=== PATIENT | female | born 1975 | race Caucasian/White ===

== ENCOUNTER 2024-02-16 17:52 | Day surgery (SDC) | payer BC, SELFPAY ==
[2024-02-16 12:17] VITALS: BP 104/76
[2024-02-16 12:43] LABS: % Basophils 0.5 % (0-2); % Eosinophils 1.1 % (0-6); % Immature Granulocytes 0.3 % (0-0.5); % Lymphocytes 20.3 % (20.5-51.1); % Monocytes 6.7 % (1.7-9.3); % Neutrophils 71.1 % (42.2-75.2); Absolute Basophils 0.1 10^3/uL (0-0.2); Absolute Eosinophils 0.1 10^3/uL (0-0.7); Absolute Lymphocytes 2.1 10^3/uL (1.2-3.4); Absolute Monocytes 0.7 10^3/uL (0.1-0.6); Absolute Neutrophils 7.2 10^3/uL (1.4-6.5); Hematocrit 39.6 % (37.0-47.0); Hemoglobin 13.6 g/dL (12.0-16.0); Mean Corp Hgb Conc. 34.3 g/dL (33.0-37.0); Mean Corpuscular Hgb 29.9 pg (27.0-31.0); Mean Platelet Volume 9.1 fL (7.4-10.4); Nucleated Red Blood Cells % 0 %; Platelet Count 254 10^3/uL (130-400); Red Blood Cell Count 4.55 10^6/uL (4.20-5.40); Red Cell Dist. Width 12.8 % (11.5-14.5); White Blood Cell Count 10.1 10^3/uL (4.8-10.8)
[2024-02-16 12:56] LABS: ALT (SGPT) 18 U/L (0-35); AST (SGOT) 23 U/L (14-36); Albumin 4.5 g/dl (3.5-5.0); Alkaline Phosphatase 54 U/L (38-126); Blood Urea Nitrogen 16 mg/dl (7-17); Calcium 9.5 mg/dl (8.4-10.2); Carbon Dioxide 27 mmol/L (22-30); Chloride 105 mmol/L (98-107); Glucose 89 mg/dl (70-99); HCG, Serum Qualitative Screen Negative; Lipase 221 U/L (23-300); Sodium 139 mmol/L (135-145); Total Bilirubin 0.8 mg/dl (0.2-1.3); Total Protein 6.8 g/dl (6.3-8.2); eGFR > 60.00
--- NOTE | 2024-02-16 13:36 | ED.GENMED ---
History of Present Illness
General
Chief Complaint: Abdominal Pain
Source: patient
Exam Limitations: none
Time Seen by Provider: 02/16/24 12:56
Nursing documentation reviewed up to this point in time: agreed with
History of Present Illness
History of Present Illness:
48 y/o F with ankylosing spondylitis
here with RUQ pain to back, n/v (too many times to count last night) that started 4 pm yesterady
pain is wors with movement and deep breathing, very tender
tried to tolerate aleve but couldn't keep it down
went to PCP and was sent here
+ chills, no fever
denies urinary symptoms, ches tpain, cough, recent travel, history of DVT/PE, hematuria, diarrhea, constipation
last bm yesteray
still has gallbladder
Past History
Past History
ED Past Medical History: Other (ankylosing spondylitis)
ED Past Surgical History: Gynecological
Social History
Tobacco: Non-smoker
Alcohol: None
Drug: None
Personal:
Living: with family
Employment: Employed
Review of Systems
Review of Systems
Allergies reviewed?: Yes
All Other Systems: Not applicable
Phy Exam
Physical Exam
Physical Exam:
GENERAL: Alert , in no apparent distress
EYE: pupils equal and reactive
NECK: Supple
ENT: o/p clr, mmm.
CARDIAC: Regular rate and rhythm .
LUNGS: Clear breath sounds bilaterally, no acute respiratory distress, no wheezes/rales/rhonchi
Able to take deep breaths, no rib tenderness, no rash
ABDOMEN: Soft, right upper quadrant tenderness, moderate, positive Gan sign, no r/g, no cvat, normal bowel sounds
Nondistended
NEUROLOGICAL: Alert and oriented, no focal neuro deficits
SKIN: Warm and dry, skin intact.
MUSCULOSKELETAL: No edema, well perfused. neg steffany's sign
PSYCH: Normal and appropriate interaction.
Course
Orders/Labs/Results
Orders:
Orders
02/16/24 12:22
Test Result ONCE
02/16/24 12:28
Complete Blood Count/With Diff Urgent
Comprehensive Metabolic Panel Urgent
HCG, Serum Qualitative Screen Urgent
Lipase Urgent
02/16/24 13:35
0.9% Sodium Chloride 1000 ml [Nss] 1,000 ml IV BOLUS
Ketorolac [Toradol] 30 mg IV NOW STA
Ondansetron Injectable [Zofran] 4 mg IV NOW STA
US Abdomen Complete/Upper Urgent
Comment:
Reason For Exam: ruq pain to back, vomiting last night
02/16/24 15:50
Urinalysis Reflex To Culture Urgent
Date Specimen was Collected: 02/16/24
Time Specimen was Collected: 14:09
Urine Microscopic Reflex Cult Urgent
02/16/24 16:19
Ampicillin/Sulbactam 3 G [Unasyn] 3 gm 0.9% Sodium Chloride 100 ml [Nss] 100 ml IV NOW
Abnormal Lab Results
02/16/24 02/16/24
12:28 15:50
Absolute Neuts (auto) 7.2 H 10^3/uL
(1.4-6.5)
Absolute Monos (auto) 0.7 H 10^3/uL
(0.1-0.6)
Lymphocytes % 20.3 L %
(20.5-51.1)
Urine Ketones 2+ A
(Negative)
Urine Bilirubin 1+ A
(Negative)
Leukocyte Esterase Rfl Trace A
(Negative)
02/16/24 12:28
02/16/24 12:28
Vital Signs
Initial and Last Documented VS:
Initial Vital Signs
Temp Pulse Resp BP Pulse Ox
98.0 F 95 18 104/76 98
02/16/24 12:17 02/16/24 12:17 02/16/24 12:17 02/16/24 12:17 02/16/24 12:17
Last Documented Vital Signs
Temp Pulse Resp BP Pulse Ox
98.0 F 95 18 104/76 98
02/16/24 12:17 02/16/24 12:17 02/16/24 12:17 02/16/24 12:17 02/16/24 12:17
MDM/Problems Addressed
Differential Diagnosis Includes:
acute cholecysitits, choleltihiasis
MDM/Problems Addressed:
48 y/o healthy F
ruq pain, n/v since yesterday
afebrile, well appearing
tendeR RUQ, + gan's sign
normal labs
US c/w acute cholecystitis
surgery consulted
iv abx ordered
npo
*Critical Care Note
Total Time (30-74mins, 75-104mins- exclusive of procedures): Not Applicable
ED Attending Note
-
Portions of this chart may have been created with voice recognition software.� Occasional wrong word or��sound alike� substitutions may have occurred due to the inherent limitations of voice recognition software.
Discharge Plan
Departure
Prescriptions:
No Action
Wegovy 2.4 mg/0.75 mL pen injector
2.4 mg SC TU
Referrals:
Ellie Garcia, [Family Provider] -
Interventions
Interventions:
*Risk Screen - Suicide Last Done: 02/16/24 14:09
*General Assessment Last Done: 02/16/24 14:09
*Neglect/Abuse Screening Last Done: 02/16/24 14:09
VQ-Daeark-Nsldjzbqwm Assessment Last Done: 02/16/24 14:09
Discharge Date and Time
Print Language: DANISH
[2024-02-16] MEDS: NSS 1000 IV ×3 (14:02→23:45)
[2024-02-16] MEDS: ZOFRAN 4 MG IV (14:03)
[2024-02-16] MEDS: TORADOL 30 MG IV (14:03)
[2024-02-16 14:09] VITALS: BMI 27.1
[2024-02-16 16:20] LABS: Urine Albumin Trace (Neg - Trace); Urine Bilirubin 1+ (Negative); Urine Character Slightly Cloudy (Clear); Urine Color Yellow; Urine Glucose Negative (Negative); Urine Ketone 2+ (Negative); Urine Leukocyte Trace (Negative); Urine Nitrite Negative (Negative); Urine Occult Blood Negative (Negative); Urine Specific Gravity 1.025 (<1.030); Urine Urobilinogen Negative (Neg - 1+)
--- NOTE | 2024-02-16 16:22 | HPS.HSE ---
Addendum entered and electronically signed by Noel Wolfe MD 02/16/24 18:26:
I saw and examined the patient independently.
The Family Practice Nurse Practitioner's note was reviewed and I agree with the note, assessment and plan except where noted below.
Comment: This is a 48-year-old female who presents with history, imaging, blood work all consistent with early acute cholecystitis.
Due to OR backlog, will plan for laparoscopic cholecystectomy in the OR tomorrow.
N.p.o., IV fluids, IV antibiotics ordered.
Risks/Benefits/Alternatives, expected postoperative course and possible complications (bleeding, infection, injury to surrounding structures, acute/chronic pain) discussed at length. Patient wishes to proceed with surgery. All questions answered.
Consent obtained.
I spent roughly 60 minutes in total for the care of this patient today including direct patient care and counseling, reviewing labs, imaging, coordination of care, as well as documentation.
Original Note:
Family Physician
-
Family Physician: Ellie Garcia
Chief Complaint
-
RUQ pain
History of Present Illness
Ms Felix is a 48 yo female with a h/o x2, ankylosing spondylitis on wegovy for weight loss without rapid weight changes who presents through the ED with RUQ pain after eating a large Mediterranean lunch with her brother yesterday
afternoon. She notes that later that day, she began having severe RUQ pain radiating into her back with nausea, vomiting and chills. She last vomited around 2am. She went to her PCP today for evaluation and it was recommended that she present
through the ED for further work up. She notes no fevers. She denies bowel or bladder changes with last BM this am. RUQ tenderness present on exam.
Medical History
Past Medical History
Past Medical History: Reports Other (ankylosing spondylitis )
Past Surgical History: Reports (x2)
Social History
Tobacco: Non-smoker
Alcohol: None
Personal:
Living: With Family
Employment: Employed (RN at [employer])
Family History
Family History: Not pertinent
Allergies / Home Medications
Allergies reflects when Allergies were last updated in [facility].
Home Medications with original date entered in [facility]
Allergy/Medication List:
Patient Allergies
Allergy/AdvReac Type Severity Reaction Status Date / Time
No Known Allergies Allergy Unverified 02/16/24 12:19
�Medication �Instructions �Recorded �Confirmed �Type
semaglutide (weight loss) 2.4 2.4 mg SC TU 02/16/24 02/16/24 History
mg/0.75 mL subcutaneous pen
injector (Wegovy)
Review of Systems
-
History Source: Patient
A 12 point ROS was completed and negative except as noted: Yes
Physical Exam
Vital Signs
Vital Signs
Temp Pulse Resp BP Pulse Ox
98.0 F 95 18 104/76 98
02/16/24 12:17 02/16/24 12:17 02/16/24 12:17 02/16/24 12:17 02/16/24 12:17
Physical Exam
General: Well Developed and Well Nourished
HEENT: NormoCephalic and Moist mucous membranes
Respiratory: Non Labored Respirations
GI: Soft, Non Distended and Tender (RUQ)
Skin: Warm and Dry; No Jaundice
Neuro: Awake, Alert and AO x 3
Psych: Calm
Laboratory Results
-
02/16/24 12:28
02/16/24 12:28
Laboratory Results
Total Bilirubin 0.8 mg/dl (0.2-1.3) 02/16/24 12:28
AST 23 U/L (14-36) 02/16/24 12:28
ALT 18 U/L (0-35) 02/16/24 12:28
Alkaline Phosphatase 54 U/L (38-126) 02/16/24 12:28
Lipase 221 U/L (23-300) 02/16/24 12:28
Data Reviewed
-
Ultrasound: Image Personally Visualized and interpreted, Report Reviewed by me, Discussed with Physician and Discussed with Patient
Lab Data: Labs Reviewed by me, Discussed with Physician and Discussed with Patient
Impression/Plan
-
IMPRESSION:
48 yo female with a h/o x2, ankylosing spondylitis on wegovy for weight loss who presents with approx 24 hours of RUQ pain with n/v after a large meal yesterday. She is afebrile with stable vital signs. No leukocytosis with normal lft's.
RUQ tenderness on exam. Abdominal US with prominent gallbladder containing multiple stones with +ortiz's sign and wall thickening. Exam and imaging consistent with early acute calculous cholecystitis. IV Unasyn given in the ED.
PLAN:
--Keep npo for tentative lap antwan today pending OR availability
--Continue antibiotics, Zosyn 3.375mg q6h
--IVF while NPO
--Zofran 4mg q6hprn nausea
--Analgesics with Tylenol/Dilaudid
--VTE ppx with SCD's
[2024-02-16] MEDS: UNASYN IV (16:33)
[2024-02-16 16:58] LABS: Urine Mucus Many
[2024-02-16 16:59] LABS: Urine Bacteria Many (Negative); Urine Red Blood Cell 0-2 /HPF (0-2)
[2024-02-16] MEDS: DILAUDID 0.5 MG IV ×3 (17:55→23:17)
[2024-02-16 18:45] VITALS: BP 101/63
--- NOTE | 2024-02-16 19:18 | PTCARENOTE ---
Received patient from ER via stretcher at 1845. Pain controlled. Patient oriented to room. Call rivers in reach.
[2024-02-16] MEDS: ZOSYN IV (22:02)
--- NOTE | 2024-02-16 22:59 | W.SUR.PREOP ---
Pre-Operative Surgical Note
-
I have examined this patient prior to the performance of the scheduled procedure.
The patient's condition is unchanged from the time of the current History and
Physical and the patient is able to undergo the scheduled procedure.
--- NOTE | 2024-02-16 22:59 | W.IMMPOSTOP ---
Surgical Immed Post Op Note
-
Primary Surgeon: Noel Wolfe MD
Assisting Surgeon: None
Pre-op Diagnosis: Acute cholecystitis
Post-op Diagnosis: Same
Procedure Performed: Laparoscopic cholecystectomy
Anesthesia Type: General
Specimen / Cultures: Gallbladder
Estimated Blood Loss: 7 cc
Complications: None
Operative Findings: Acutely inflamed, highly edematous cholecystitis with periduodenal fat and adhesions to the infundibulum. Critical view of safety obtained prior to ligation of the cystic artery and duct. No cholangiogram performed. Duct
ligated with a 5 mm clip followed by 0 PDS Endoloop.
POST OP PLAN:
Imaging: None
Labs: Routine AM
Diet: Advance to Regular as tolerated
Analgesia: Tylenol 650mg q6 Tigist, Vilma 5mg q6 PRN, Dilaudid 0.5mg q2h PRN
Neuro/vascular checks: q4h
AC/AP: Hold Therapeutic AC, Ok for DVT PPx
Activity: Ad Shyla
Wound/Incisions/Drains: Routine
Abx: Continue antibiotics while admitted.
Dispo: RNF, anticipate discharge home tomorrow.
--- NOTE | 2024-02-16 23:02 | OR.RPT ---
Operative Report
Operative Report
Patient Name: Ellie Felix
: 1975
Date of Operation: 02/16/2024
Preoperative Diagnosis: Acute cholecystitis
Postoperative Diagnosis: Same
Procedure(s):
Laparoscopic Cholecystectomy
Surgeon(s):
Dr. Wolfe
Phys Asst(s):
None
Anesthesia: General
Estimated Blood Loss: 7 cc
Urine Output: None
Drains/Lines/Implants: None
Specimens:
1. Gallbladder and contents
HPI/Surgical Indications:
This is a 48-year-old female who presents with a 2-day history of right upper quadrant abdominal pain in the setting of sporadic episodes of biliary colic. Exam, labs and imaging are consistent with acute cholecystitis. Risks/Benefits/Alternatives
were discussed at length, and the patient agreed to proceed with surgery.
Operative Findings: Acutely inflamed, highly edematous cholecystitis with periduodenal fat and adhesions to the infundibulum. Critical view of safety obtained prior to ligation of the cystic artery and duct. No cholangiogram performed. Duct
ligated with a 5 mm clip followed by 0 PDS Endoloop.
Procedure Description:
The patient was brought to the Operating Room and placed in the supine position with one arm tucked. Following uneventful induction of general endotracheal anesthesia, an orogastric tube was placed. The abdomen was prepped and draped in the usual
sterile fashion. A timeout was performed confirming the procedure, consent, and that IV antibiotics were infused and sequential compression devices were confirmed to be on. The abdomen was entered using an infraumbilical open Guido technique with a
12 mm port. Pneumoperitoneum to 15 mmHg pressure was obtained without difficulty and we confirmed that no injury had occurred during our entry. The patient was positioned in reverse Trendelenberg and rotated with the right side up slightly. Three
(3) 5mm trocars were then placed along the right subcostal margin. The gallbladder was distended but we were able to place a locking grasping forceps was placed on the fundus of the gallbladder where it was then retracted cephalad and to the right.
There was significant adhesions from the periduodenal fat to the infundibulum which were carefully lysed with blunt dissection and electrocautery. Using appropriate grasping instruments, the peritoneum overlying the triangle of Calot was incised
and extended superiorly on both the anterior and posterior gallbladder whalen. There was significant edema of the gallbladder in the wall. The infundibulum was dissected off the cystic plate. The cystic triangle was dissected until a critical view
of safety was achieved. The cystic artery was medialized, dissected and controlled with 2 proximal clips and 1 distal. The cystic duct/gallbladder junction in turn was identified, dissected circumferentially and a clip was placed. A ductotomy was
made and bile was easily milked backwards. The cystic duct was quite diminutive and her LFTs were normal so no cholangiogram was performed. The duct was then controlled with a 5 mm clip followed by a 0 PDS Endoloop. After ensuring both the artery
and duct were divided, the gallbladder was freed from the liver using electrocautery. There was no spillage of bile or stones. The gallbladder bed was inspected and excellent hemostasis was obtained. The gallbladder was extracted through the 12 mm
trocar site using an endocatch bag. The umbilical port site had to be extended slightly to facilitate removal of the gallbladder. The abdomen was again irrigated and excellent hemostasis was assured. All remaining trocars were then removed and
the pneumoperitoneum was evacuated. The 12 mm trocar site was closed using 0 PDS suture. All trocar sites were closed at the skin level using 4-0 Monocryl followed by Dermabond. Overall, the patient tolerated the procedure well and was taken to
the Recovery Room postoperatively in stable condition.
I was the attending physician and performed the procedure with no assistance. I was present for all portions of the case
Noel Wolfe MD
[2024-02-16 23:06] VITALS: BP 101/63; BP 105/61
[2024-02-16] MEDS: COMPAZINE 5 MG IV (23:11)
[2024-02-16 23:15] VITALS: BP 107/65
[2024-02-16] MEDS: SUBLIMAZE 50 MCG IV (23:23)
[2024-02-16] MEDS: TORADOL 15 MG IV (23:24)
[2024-02-16 23:30] VITALS: BP 96/65
[2024-02-16 23:45] VITALS: BP 91/55
[2024-02-17 00:04] VITALS: BP 98/57
[2024-02-17] MEDS: DILAUDID 1 MG IV ×2 (02:45→07:23)
[2024-02-17 03:10] VITALS: BP 95/60
[2024-02-17] MEDS: ZOSYN 50 IV ×4 (04:01→21:33)
[2024-02-17] MEDS: ZOFRAN 4 MG IV ×2 (04:46→12:55)
[2024-02-17] MEDS: DILAUDID 0.5 MG IV (05:13)
[2024-02-17 07:47] VITALS: BP 92/65
[2024-02-17] MEDS: TORADOL 15 MG IV (07:54)
--- NOTE | 2024-02-17 08:27 | W.PN.GS2 ---
Today's Communication / Plan
-
-- LFD
-- Pain control: Tylenol, Toradol, Tramadol, IV Dilaudid PRN
-- mIVF
-- Repeat labs
-- Zofran for PRN nausea
-- Lovenox for DVT
-- Protonix for GI
-- Monitor throughout the day, DC pending labs and progression
Assessment / Plan
-
Patient is a 48 yo F POD#1 s/p laparoscopic cholecystectomy
No major postoperative concerns. Postoperative issues with abdominal pain and nausea. Plan to monitor throughout the day.
-- LFD
-- Pain control: Tylenol, Toradol, Tramadol, IV Dilaudid PRN
-- mIVF
-- Repeat labs
-- Zofran for PRN nausea
-- Lovenox for DVT
-- Protonix for GI
-- Monitor throughout the day, DC pending labs and progression
Subjective Data
-
Date of Service: February 17, 2024
Reports abdominal pain and nausea. Pain is different from presentation. No episodes of vomiting. No fevers. Minimal ambulation. Voiding. Passing flatus.
Objective Data
-
Intake and Output
02/16/24 02/17/24 02/18/24
06:59 06:59 06:59
Intake Total 1160 / 1160
Balance 1160 / 1160
Intake:
Oral fluids 300 / 300
IV fluids (Total) 760 / 760
Normosol 200 / 200
IV piggybacks 100 / 100
Other:
Number of approximated MODERATE 1
amounts of urine
Vital Signs
Temp Pulse Resp BP Pulse Ox
97.4 F 85 18 92/65 95
02/17/24 03:10 02/17/24 07:47 02/17/24 07:47 02/17/24 07:47 02/17/24 07:47
Lab Results
02/16/24 12:28
02/16/24 12:
Calcium 9.5 mg/dl (8.4-10.2) 02/16/24 12:
Total Bilirubin 0.8 mg/dl (0.2-1.3) 02/16/24 12:
AST 23 U/L (14-36) 02/16/24 12:
ALT 18 U/L (0-35) 02/16/24 12:
Alkaline Phosphatase 54 U/L (38-126) 02/16/24 12:
Total Protein 6.8 g/dl (6.3-8.2) 02/16/24 12:
Albumin 4.5 g/dl (3.5-5.0) 02/16/24 12:
Physical Exam
-
Gen: NAD
Abd: soft, tender in RUQ, ND, non-peritoneal, incisions c/d/i - no erythema, mild ecchymosis, no drainage
[2024-02-17] MEDS: PROTONIX IV 40 MG IV (09:30)
[2024-02-17] MEDS: NSS (PRESERVATIVE FREE) 10 ML IV (09:30)
[2024-02-17] MEDS: D5/0.45%NSS with KCL 20 MEQ 1000 IV ×2 (09:31→21:34)
[2024-02-17 11:16] VITALS: BP 99/59
--- NOTE | 2024-02-17 12:30 | CM ---
Reviewed the chart notes and spoke with the patient at the bedside. The patient resides with her spouse in a two story home with four steps to enter. The patient reports no DME/VN/SNF in the past. [facility] continues to be available to patient/family and is monitoring medical plan for needs at discharge.
Plan: Discharge to home when medically stable. No needs anticipated at this time.
[2024-02-17] MEDS: ULTRAM 50 MG PO ×2 (12:55→20:08)
[2024-02-17] MEDS: COMPAZINE 5 MG IV ×2 (13:17→19:57)
[2024-02-17 13:52] LABS: ALT (SGPT) 123 U/L (0-35); AST (SGOT) 103 U/L (14-36); Albumin 4.2 g/dl (3.5-5.0); Alkaline Phosphatase 93 U/L (38-126); Blood Urea Nitrogen 17 mg/dl (7-17); Calcium 8.6 mg/dl (8.4-10.2); Carbon Dioxide 22 mmol/L (22-30); Chloride 108 mmol/L (98-107); Estimated Creatinine Clearance 88 ml/min; Glucose 115 mg/dl (70-99); Potassium 4.1 mmol/L (3.5-5.1); Sodium 140 mmol/L (135-145); Total Bilirubin 0.7 mg/dl (0.2-1.3); Total Protein 6.4 g/dl (6.3-8.2); eGFR > 60.00
[2024-02-17 14:04] LABS: % Basophils 0.2 % (0-2); % Immature Granulocytes 0.3 % (0-0.5); % Lymphocytes 9.4 % (20.5-51.1); % Monocytes 4.3 % (1.7-9.3); % Neutrophils 85.8 % (42.2-75.2); Absolute Lymphocytes 0.9 10^3/uL (1.2-3.4); Absolute Monocytes 0.4 10^3/uL (0.1-0.6); Absolute Neutrophils 8.1 10^3/uL (1.4-6.5); Hematocrit 37.6 % (37.0-47.0); Hemoglobin 12.8 g/dL (12.0-16.0); Mean Corpuscular Hgb 30.5 pg (27.0-31.0); Mean Corpuscular Volume 89.5 fL (81.0-99.0); Mean Platelet Volume 11.3 fL (7.4-10.4); Nucleated Red Blood Cells % 0 %; Platelet Count 147 10^3/uL (130-400); Red Cell Dist. Width 12.8 % (11.5-14.5); White Blood Cell Count 9.4 10^3/uL (4.8-10.8)
[2024-02-17 15:29] VITALS: BP 97/51
[2024-02-17] MEDS: LOVENOX 40 MG SC (17:56)
[2024-02-17 23:20] VITALS: BP 95/55
[2024-02-18] MEDS: ZOSYN 50 IV (03:14)
[2024-02-18] MEDS: ULTRAM 50 MG PO ×2 (06:40→13:10)
[2024-02-18 07:25] VITALS: BP 95/64
[2024-02-18 08:21] LABS: Hematocrit 32.9 % (37.0-47.0); Hemoglobin 11.1 g/dL (12.0-16.0); Mean Corp Hgb Conc. 33.7 g/dL (33.0-37.0); Mean Corpuscular Hgb 30.7 pg (27.0-31.0); Mean Corpuscular Volume 91.1 fL (81.0-99.0); Mean Platelet Volume 9.9 fL (7.4-10.4); Platelet Count 183 10^3/uL (130-400); Red Blood Cell Count 3.61 10^6/uL (4.20-5.40); White Blood Cell Count 5.6 10^3/uL (4.8-10.8)
[2024-02-18 09:22] LABS: ALT (SGPT) 520 U/L (0-35); AST (SGOT) 448 U/L (14-36); Albumin 3.4 g/dl (3.5-5.0); Alkaline Phosphatase 198 U/L (38-126); Blood Urea Nitrogen 15 mg/dl (7-17); Calcium 8.5 mg/dl (8.4-10.2); Carbon Dioxide 24 mmol/L (22-30); Chloride 108 mmol/L (98-107); Estimated Creatinine Clearance 77 ml/min; Glucose 92 mg/dl (70-99); Sodium 138 mmol/L (135-145); Total Bilirubin 0.5 mg/dl (0.2-1.3); Total Protein 5.5 g/dl (6.3-8.2); eGFR > 60.00
--- NOTE | 2024-02-18 11:19 | W.PN.GS2 ---
Today's Communication / Plan
-
DC
Assessment / Plan
-
Patient is a 48 yo F POD#2 s/p laparoscopic cholecystectomy
No major postoperative concerns. Postoperative issues with abdominal pain and nausea resolving.
AST/ALT/ALP elevtaed today, likely reactive. Tbili WNL. Discussed possibility of outpt labs in 1-2 weeks to ensure appropriate normalization
-- LFD
-- Pain control: Tylenol, Toradol, Tramadol,
-- HLIV
-- Zofran for PRN nausea
-- Lovenox for DVT
-- Protonix for GI
-- Colace x1 per pt request
-- DC home
Subjective Data
-
Date of Service: February 18, 2024
AFVSS, ambulating, librado PO, pain improving, denies n/v
Objective Data
-
Intake and Output
02/17/24 02/18/24 02/19/24
06:59 06:59 06:59
Intake Total 1160 / 1160 2660 / 2660
Balance 1160 / 1160 2660 / 2660
Intake:
Oral fluids 300 / 300 1560 / 1560
IV fluids (Total) 760 / 760 900 / 900
Normosol 200 / 200
IV piggybacks 100 / 100 200 / 200
Other:
Number of approximated MODERATE 1 3
amounts of urine
Vital Signs
Temp Pulse Resp BP Pulse Ox
98.2 F 73 17 95/64 97
02/18/24 07:25 02/18/24 07:25 02/18/24 07:25 02/18/24 07:25 02/18/24 07:25
Lab Results
02/18/24 07:25
02/18/24 07:25
Calcium 8.5 mg/dl (8.4-10.2) 02/18/24 07:25
Total Bilirubin 0.5 mg/dl (0.2-1.3) 02/18/24 07:25
AST 448 U/L (14-36) H 02/18/24 07:25
ALT 520 U/L (0-35) H* 02/18/24 07:25
Alkaline Phosphatase 198 U/L (38-126) H 02/18/24 07:25
Total Protein 5.5 g/dl (6.3-8.2) L 02/18/24 07:25
Albumin 3.4 g/dl (3.5-5.0) L 02/18/24 07:25
Physical Exam
-
Gen: NAd, anicteric
Abd: incisions cdi, soft, aprop ttp
[2024-02-18] MEDS: COLACE 100 MG PO (11:34)
[2024-02-18] MEDS: PROTONIX IV IV (11:39)
[2024-02-18] MEDS: NSS (PRESERVATIVE FREE) IV (11:39)
[2024-02-18 12:05] VITALS: BP 102/65
--- NOTE | 2024-02-18 12:35 | CM ---
Reviewed the chart notes and spoke with the patient at the bedside. Patient is being discharged to home today with no additional needs being identified. Patient's spouse will provide transportation. CM continues to be available to patient/family
and is monitoring medical plan for needs at discharge.
Plan: Discharge to home today.
== END 2024-02-18 14:21 | disposition home or self-care (01) ==
LOC: SDS 17:52
PROVIDERS: Emergency Medicine; Physician Assistant; Surgery; ATTENDING PHYSICIAN Surgery; EMERGENCY PHYSICIAN Emergency Medicine; FAMILY PHYSICIAN Internal Medicine
DX: K80.00 Calculus of gallbladder with acute cholecystitis without obstruction (principal)
CPT/HCPCS: 47562; 88304; 76700; 80053; 81003; 81015; 83690; 84703; 85025; 85027; 87086; 96365; 96375; 99285; G0378

== ENCOUNTER → 2024-03-01 12:39 | Outpatient (REF) | payer BC, SELFPAY ==
[2024-03-01 13:17] LABS: % Basophils 1.2 % (0-2); % Eosinophils 1.5 % (0-6); % Immature Granulocytes 0.2 % (0-0.5); % Lymphocytes 33.4 % (20.5-51.1); % Monocytes 5.3 % (1.7-9.3); % Neutrophils 58.4 % (42.2-75.2); Absolute Basophils 0.1 10^3/uL (0-0.2); Absolute Eosinophils 0.1 10^3/uL (0-0.7); Absolute Lymphocytes 2.2 10^3/uL (1.2-3.4); Absolute Monocytes 0.4 10^3/uL (0.1-0.6); Absolute Neutrophils 3.9 10^3/uL (1.4-6.5); Hematocrit 39.6 % (37.0-47.0); Hemoglobin 13.5 g/dL (12.0-16.0); Mean Corp Hgb Conc. 34.1 g/dL (33.0-37.0); Mean Corpuscular Hgb 30.4 pg (27.0-31.0); Mean Corpuscular Volume 89.2 fL (81.0-99.0); Nucleated Red Blood Cells % 0 %; Platelet Count 274 10^3/uL (130-400); Red Blood Cell Count 4.44 10^6/uL (4.20-5.40); Red Cell Dist. Width 12.9 % (11.5-14.5); White Blood Cell Count 6.6 10^3/uL (4.8-10.8)
[2024-03-01 14:11] LABS: ALT (SGPT) 50 U/L (0-35); AST (SGOT) 28 U/L (14-36); Albumin 4.7 g/dl (3.5-5.0); Alkaline Phosphatase 97 U/L (38-126); Blood Urea Nitrogen 13 mg/dl (7-17); Calcium 9.6 mg/dl (8.4-10.2); Carbon Dioxide 25 mmol/L (22-30); Chloride 105 mmol/L (98-107); Glucose 87 mg/dl (70-99); Potassium 4.3 mmol/L (3.5-5.1); Sodium 141 mmol/L (135-145); Total Bilirubin 0.4 mg/dl (0.2-1.3); Total Protein 7.2 g/dl (6.3-8.2); eGFR > 60.00
== END ==
LOC: REG 12:39
PROVIDERS: ATTENDING PHYSICIAN Surgery; FAMILY PHYSICIAN Internal Medicine
DX: Z90.49 Acquired absence of other specified parts of digestive tract (principal); K81.0 Acute cholecystitis
CPT/HCPCS: 36415; 80053; 85025